=== PATIENT | female | born 1985 | race Hispanic/Latino ===

== ENCOUNTER 2016-12-01 14:27 | Emergency (ER) | payer OTHER ==
[2016-12-01 14:46] VITALS: BP 122/79; PULSE 85; RESP 16; TEMP 97; O2SAT 97
[2016-12-01] MEDS ORDERED: Sodium Chloride 0.9% 1,000 ML IV STA (14:55)
[2016-12-01] MEDS ORDERED: cefTRIAXone (Rocephin) 1 gm Inj IVPB STA (14:56)
[2016-12-01] MEDS ORDERED: cefTRIAXone IV 1 gm in Dextros 50 ML IVPB ONE (15:00)
--- NOTE | 2016-12-01 15:07 | ED PDOC ---
HPI: Back Time Seen by Provider: 12/01/16 14:50 Chief Complaint (Nursing): Female Genitourinary Chief Complaint (Provider): Back pain History Per: Patient History/Exam Limitations: no limitations Additional Complaint(s): Patient is a 31 y/o female with a past medical history of urinary tract infection sent by an urgency care facility for evaluation of persistent back pain associated with pyelonephritis. Reports taking four doses of Cipro as prescribed, which has resolved a past fever but reports feeling persistent left side flank pain. Denies vomiting or other complaints. PCP: none provided. Past Medical History Reviewed: Historical Data, Nursing Documentation, Vital Signs Vital Signs: Last Vital Signs Temp 97 F L 12/01/16 14:43 Pulse 85 12/01/16 14:43 Resp 16 12/01/16 14:43 BP 122/79 12/01/16 14:43 Pulse Ox 97 12/01/16 14:43 - Medical History Other PMH: pyelonephritis, urinary tract infection - Family History Family History: States: No Known Family Hx - Allergies Allergies/Adverse Reactions: Allergies Allergy/AdvReac Type Severity Reaction Status Date / Time No Known Allergies Allergy Verified 12/01/16 14:43 Review of Systems ROS Statement: Except As Marked, All Systems Reviewed And Found Negative Gastrointestinal: Negative for: Vomiting Musculoskeletal: Positive for: Back Pain (left flank pain) Physical Exam - Reviewed Nursing Documentation Reviewed: Yes Vital Signs Reviewed: Yes - Physical Exam Appears: Positive for: Well, Non-toxic, No Acute Distress Head Exam: Positive for: ATRAUMATIC, NORMAL INSPECTION, NORMOCEPHALIC Skin: Positive for: Normal Color, Warm, Dry Eye Exam: Positive for: Normal appearance Neck: Positive for: Normal Cardiovascular/Chest: Positive for: Regular Rate, Rhythm Respiratory: Negative for: Accessory Muscle Use, Respiratory Distress Gastrointestinal/Abdominal: Positive for: Normal Exam, Soft. Negative for: Tenderness Pelvic Exam: Positive for: No Masses Back: Positive for: L CVA Tenderness, Other (Left flank pain). Negative for: R CVA Tenderness, Vertebral Tenderness Extremity: Positive for: Normal ROM Neurologic/Psych: Positive for: Alert, Oriented (x3) - Laboratory Results Result Diagrams: 12/01/16 15:15 12/01/16 15:15 - ECG O2 Sat by Pulse Oximetry: 97 (RA) Pulse Ox Interpretation: Normal - Progress ED Course And Treament: rOCEPHIN 1 GM IV X 1 DOSE ns 1 liter wide open Renal US: wnl Medical Decision Making Medical Decision Making: Time: 14:56 Initial impression: Left flank pain Initial plan: Labs: BMP, CBC, Lactic Acid Rocephin 1 gm Blood Culture Urine Culture Urinalysis ~ Scribe Attestation: Documented by Kenisha Elias, acting as a scribe for OBED Gao. Provider Scribe Attestation: All medical record entries made by the Scribe were at my direction and personally dictated by me. I have reviewed the chart and agree that the record accurately reflects my personal performance of the history, physical exam, medical decision making, and the department course for this patient. I have also personally directed, reviewed, and agree with the discharge instructions and disposition. Disposition - Clinical Impression Clinical Impression: Pyelonephritis - Patient ED Disposition Is Patient to be Admitted: No - Disposition Disposition: Routine/Home Disposition Time: 17:15 Condition: FAIR Additional Instructions: PLEASE CONTINUE CIPRO ANTIBIOTICS AND F/U WITH URINE CX RESULTS AT URGENT CARE TOMORROW. Instructions: Acute Pyelonephritis (DC) Forms: [email or web address] (Hebrew)
[2016-12-01 15:44] LABS: BASO % 0.3 % (0.0-2.0); EOS % 0.2 % (0.0-4.0); HEMATOCRIT 41.7 % (34.0-47.0); LYMPH # 1.1 K/uL (1.0-4.3); LYMPH % 15.6 % (20.0-40.0); MEAN CELL VOLUME 90.1 fl (81.0-99.0); MEAN CORPUSCULAR HEMOGLOBIN 30.2 pg (27.0-31.0); MEAN CORPUSCULAR HGB CONC 33.5 g/dL (33.0-37.0); MONO # 0.4 K/uL (0.0-0.8); MONO % 5.8 % (0.0-10.0); NEUT # 5.6 K/uL (1.8-7.0); NEUT % 78.1 % (50.0-75.0); RED CELL DISTRIBUTION WIDTH 12.2 % (11.5-14.5); WHITE BLOOD COUNT 7.1 K/uL (4.8-10.8)
[2016-12-01 15:59] LABS: URINE BACTERIA RARE (<OCC); URINE BILIRUBIN NEGATIVE (NEGATIVE); URINE BLOOD SMALL (NEGATIVE); URINE COLOR STRAW (YELLOW); URINE GLUCOSE (UA) NEG (Normal); URINE KETONE NEGATIVE (NEGATIVE); URINE LEUKOCYTE ESTERASE TRACE Leu/uL (Negative); URINE PROTEIN NEGATIVE (NEGATIVE); URINE UROBILINOGEN 0.2-1.0 mg/dL (0.2-1.0)
[2016-12-01 15:59] LABS: BLOOD UREA NITROGEN 13 mg/dl (7-17); CALCIUM 9.5 mg/dL (8.4-10.2); CARBON DIOXIDE 25 mmol/L (22-30); CHLORIDE 101 mmol/L (98-107); GFR AFRICAN-AMERICAN > 60; GLUCOSE,RANDOM 82 mg/dL (65-105); POTASSIUM 3.6 MMOL/L (3.6-5.0); SODIUM 138 mmol/l (132-148)
[2016-12-01 16:04] LABS: RBC URINE 8 /hpf (0-3); WBC URINE 5 /hpf (0-5)
--- NOTE | 2016-12-01 17:18 | US ---
PROCEDURE: Ultrasound of the Kidneys HISTORY: r/o hydronephrosis left kidney COMPARISON: None available. TECHNIQUE: Sonogram of the kidneys. FINDINGS: RIGHT KIDNEY: Measures: 9.4 x 4.1 x 5.7 cm. No obstructing calculus, hydronephrosis, or renal cyst identified. LEFT KIDNEY: Measures: 11.8 x 5.6 x 5.7 cm. No obstructing calculus, hydronephrosis, or renal cyst identified. OTHER FINDINGS: None. IMPRESSION: No obstructing calculus, hydronephrosis, or renal cyst identified.
== END 2016-12-01 21:08 | disposition home or self-care (01) ==
LOC: H.ER 14:27
DX: N12 Tubulo-interstitial nephritis, not specified as acute or chronic (principal); Z87.440 Personal history of urinary (tract) infections
CPT/HCPCS: 76770; 80048; 81003; 83605; 85025; 87040; 87086; 96361; 96365; 99283; J0696; J7040